=== PATIENT | female | born 1955 | race American Indian/Alaskan Native ===

== ENCOUNTER 2016-06-23 14:59 | Outpatient (CLI) | payer OTHER ==
[2016-06-23 16:09] LABS: Alanine Aminotransferase 13 units/L (7-56); Albumin 4.1 g/dL (3.9-5); Albumin/Globulin Ratio 1.3 %; Alkaline Phosphatase 72 units/L (35-129); Anion Gap 18 mmol/L; Bilirubin,Total 0.3 mg/dL (0.1-1.2); Blood Urea Nitrogen 18 mg/dL (7-17); Calcium 9.4 mg/dL (8.4-10.2); Carbon Dioxide 25 mmol/L (22-30); Chloride 102.9 mmol/L (98-107); Glucose 121 mg/dL (65-100); Potassium 4.3 mmol/L (3.6-5.0); Sodium 142 mmol/L (137-145); Total Protein 7.2 g/dL (6.3-8.2); Uric Acid 5.3 mg/dL (3.5-7.6)
[2016-06-23 16:22] LABS: Hematocrit 37.1 % (30.3-42.9); Hemoglobin 11.8 gm/dl (10.1-14.3); Mean Corpuscular HGB Conc 32 % (30-34); Mean Corpuscular Hemoglobin 26 pg (28-32); Mean Corpuscular Volume 83 fl (79-97); Platelet Count 168 K/mm3 (140-440); Red Blood Count 4.48 M/mm3 (3.65-5.03); Red Cell Distribution Width 17.8 % (13.2-15.2); White Blood Count 5.5 K/mm3 (4.5-11.0)
--- NOTE | 2016-06-23 16:29 | XRay Report ---
Bilateral knee: History: Knee pain. Findings: Mild arthritic changes are noted at the medial and lateral compartment articular surface knee joint. No fracture dislocation or soft tissue calcification or joint effusion. Impression: Mild arthritic changes medial and patellofemoral compartment right and left knee joint.
--- NOTE | 2016-06-23 16:31 | XRay Report ---
The bilateral shoulder: History: Shoulder pain. Findings: Mild arthritic changes at the right and left a.c. joint. Glenohumeral joint bilaterally reveals mild degenerative changes at the inferior aspect. There is faint soft tissue calcification noted adjacent to the greater tuberosity right humerus. Impression: Arthritic changes a.c. joint and glenohumeral joint bilaterally being more pronounced at the right shoulder.
[2016-06-23 16:56] LABS: Erythrocyte Sedimentation Rate 20 mm/Hr (0-20)
== END 2016-06-23 15:00 | disposition home or self-care (01) ==
LOC: XRAY 14:59
PROVIDERS: ATTEND Internal Medicine Rheumatology
DX: M06.4 Inflammatory polyarthropathy (principal)
CPT/HCPCS: 36415; 80053; 82164; 84550; 85027; 85652; 86038; 86140; 86200; 86235; 86618

== ENCOUNTER 2019-01-28 14:25 | Outpatient (CLI) | payer OTHER ==
--- NOTE | 2019-01-29 07:57 | Ultrasound Report ---
ULTRASOUND RENAL INDICATION / CLINICAL INFORMATION: N18.2) CKD STAGE II. COMPARISON: None available. FINDINGS: RIGHT KIDNEY: Length = 10.3 cm. [normal > 9 cm] - Parenchymal Thickness = 1.1 cm. [normal > 1.5 cm] - Echogenicity: Normal. - Hydronephrosis: None. Minimal urinary stasis in the renal pelvis is noted. - Cyst or mass: No significant abnormality. - Stones: None seen. LEFT KIDNEY: Length = 11.4 cm. [normal > 9 cm] - Parenchymal Thickness = 1.2 cm. [normal > 1.5 cm] - Echogenicity: Normal. - Hydronephrosis: None. Minimal urinary stasis in the renal pelvis is noted. - Cyst or mass: No significant abnormality. - Stones: None seen. URINARY BLADDER: No significant abnormality. FREE FLUID: None. ADDITIONAL FINDINGS: None. IMPRESSION: Unremarkable renal ultrasound. Signer Name: Shahab Joshua Jr, MD Signed: 01/29/2019 7:52 AM Workstation Name: [id number]
== END 2019-01-28 14:26 | disposition home or self-care (01) ==
LOC: US 14:25
PROVIDERS: ATTEND Hospitalist
DX: N18.2 Chronic kidney disease, stage 2 (mild) (principal)
CPT/HCPCS: 76770